=== PATIENT | male | born 1965 | race Caucasian/White ===

== ENCOUNTER 2022-10-26 10:29 | Emergency (ER) | payer OTHER ==
[~2022-10-26] VITALS: Ht 193 cm; Wt 108.9 kg
[2022-10-26 12:08] VITALS: BP 139/85
== END 2022-10-26 12:09 | disposition home or self-care (01) ==
LOC: ER 10:34
DX: M54.50 Low back pain, unspecified (principal); E11.9 Type 2 diabetes mellitus without complications; Z98.890 Other specified postprocedural states
CPT/HCPCS: 72100-TC; 72220-TC